=== PATIENT | female | born 1970 | race Caucasian/White ===

== ENCOUNTER 2016-10-26 18:38 | Emergency (ER) | payer MEDICAID ==
[~2016-10-26] VITALS: Ht 170.2 cm; Wt 80.7 kg
[2016-10-26 20:25] LABS: BASOPHIL % 0.4 % (0-2); PLATELET COUNT 298 x10^3mcL (130-400)
[2016-10-26 20:33] LABS: CALCIUM 8.5 mg/dL (8.5-10.1); CARBON DIOXIDE 25.1 mmol/L (21-32); CHLORIDE SERUM 105 mmol/L (98-107); CREATININE SERUM 0.8 mg/dL (0.6-1.0); GFR1 > 60 mL/min; GLUCOSE SERUM 94 mg/dL (74-106); POTASSIUM SERUM 3.3 mmol/L (3.5-5.1); SODIUM SERUM 138 mmol/L (136-145)
[2016-10-26 23:22] VITALS: BP 98/52
== END 2016-10-26 23:22 | disposition home or self-care (01) ==
LOC: ED 18:38
PROVIDERS: Emergency Medicine
DX: R53.1 Weakness (principal); R20.2 Paresthesia of skin; R42 Dizziness and giddiness; R11.0 Nausea
CPT/HCPCS: 36415; Q0162